=== PATIENT | female | born 1985 | race Caucasian/White ===

== ENCOUNTER 2022-06-10 17:14 | Observation (INO) ==
[2022-06-10 18:33] LABS: Basophils % 0.3 % (0.0-0.8); Eosinophils # 0.6 10*3/uL (0.0-0.87); Eosinophils % 4.8 % (0.00-10.9); Hematocrit 41.9 VOL% (35.7-47.0); Immature Granulocytes % 0.3 %; Immature Granulocytes Absolute 0.04 #; Lymphocytes # 3.7 10*3/uL (1.4-4.0); Lymphocytes % 28.2 % (21.3-54.2); Mean Corpuscular HGB Conc 33.4 GM/DL (32-36); Mean Corpuscular Volume 85.7 FL (87-102); Mean Platelet Volume 11.2 FL (9.6-12.0); Monocytes # 0.7 10*3/uL (0.11-0.8); Monocytes % 5.7 % (1.7-12.7); Neutrophils % 60.7 % (38.7-73.9); Platelet Count 268 T/CUMM (130-400); Red Blood Count 4.89 MC/CUMM (3.8-5.5); Red Cell Distribution Width 13.2 % (9.3-17.3)
[2022-06-10 18:53] LABS: Albumin 3.4 G/DL (3.4-5.0); Bilirubin,Total 0.4 MG/DL (0.20-1.00); Calcium 9.1 MG/DL (8.5-10.1); Osmolality,Calculated 272.7 MOS/KG (273-304); Potassium 3.9 MMOL/L (3.5-5.1); Total Protein 6.8 G/DL (6.4-8.2)
[2022-06-10] MEDS ORDERED: HYDROmorphone 1 MG/1 ML SYRINGE IV STA (19:06)
[2022-06-10] MEDS ORDERED: ONDANSETRON 4 MG/2 ML VIAL IV STA (19:06)
[2022-06-10] MEDS ORDERED: ONDANSETRON 4 MG/2 ML VIAL IV PRN (19:50)
[2022-06-10] MEDS: LACTATED RINGERS 1,000 ML IV SCH (20:52)
[2022-06-11] MEDS: LACTATED RINGERS 1,000 ML IV SCH ×3 (04:50→16:05)
[2022-06-11] MEDS: HYDROmorphone 1 MG/1 ML SYRINGE IV PRN ×7 (07:39→16:29)
[2022-06-11] MEDS ORDERED: NICOTINE 21 MG/24 HR PATCH TRANSDERM PRN (07:46)
[2022-06-11] MEDS: PANTOPRAZOLE 40 MG TABLET PO SCH (08:34)
[2022-06-11] MEDS ORDERED: INDOCYANINE GREEN 25 MG VIAL IV ONE (09:05)
[2022-06-11] MEDS ORDERED: fentaNYL 100 MCG/2 ML VIAL ONE (12:46)
[2022-06-11] MEDS ORDERED: MIDAZOLAM 2 MG/2 ML VIAL ONE (12:46)
[2022-06-11] MEDS ORDERED: LACTATED RINGERS 1,000 ML IV SCH (13:00)
[2022-06-11] MEDS ORDERED: BUPIVACAINE MPF 0.25% 10 ML VIAL ONE (13:18)
[2022-06-11] MEDS ORDERED: ePHEDrine 50 MG/ML VIAL ONE (13:48)
[2022-06-11] MEDS ORDERED: LIDOCAINE 2% 5 ML VIAL ONE (13:58)
[2022-06-11] MEDS ORDERED: SUCCINYLCHOLINE 200 MG/10 ML VIAL ONE (13:58)
[2022-06-11] MEDS ORDERED: propofoL 200 MG/20 ML VIAL IV ONE (13:58)
[2022-06-11] MEDS ORDERED: SEVOFLURANE 1 UNIT/15 MINUTE INH ONE ×2 (13:58→14:23)
[2022-06-11] MEDS ORDERED: PHENYLEPHRINE 1 MG/10 ML SYRINGE IV ONE (13:58)
[2022-06-11] MEDS ORDERED: ROCURONIUM 50 MG/5 ML VIAL IV ONE (13:58)
[2022-06-11] MEDS ORDERED: ONDANSETRON 4 MG/2 ML VIAL ONE (13:59)
[2022-06-11] MEDS ORDERED: GLYCOPYRROLATE 0.4 MG/2 ML VIAL ONE (14:19)
[2022-06-11] MEDS ORDERED: NEOSTIGMINE 10 MG/10 ML VIAL ONE (14:22)
[2022-06-11] MEDS ORDERED: KETOROLAC 30 MG/1 ML VIAL ONE (14:24)
[2022-06-11] MEDS ORDERED: ONDANSETRON 4 MG/2 ML VIAL IV PRN ×2 (14:55→15:19)
[2022-06-11] MEDS ORDERED: MEPERIDINE 25 MG/1 ML VIAL ONE (15:09)
[2022-06-11] MEDS ORDERED: HYDROmorphone 1 MG/1 ML SYRINGE IV PRN (15:19)
[2022-06-11] MEDS ORDERED: KETOROLAC 15 MG/1 ML VIAL IV PRN (15:19)
[2022-06-11] MEDS ORDERED: MEPERIDINE 50 MG/1 ML VIAL IV PRN (15:25)
[2022-06-12 05:05] LABS: Basophils % 0.3 % (0.0-0.8); Eosinophils # 0.4 10*3/uL (0.0-0.87); Eosinophils % 3.9 % (0.00-10.9); Hematocrit 36.4 VOL% (35.7-47.0); Hemoglobin 11.7 GM/DL (12.0-16.0); Immature Granulocytes % 0.4 %; Immature Granulocytes Absolute 0.04 #; Lymphocytes # 2.3 10*3/uL (1.4-4.0); Lymphocytes % 24.3 % (21.3-54.2); Mean Corpuscular HGB Conc 32.1 GM/DL (32-36); Mean Corpuscular Volume 89.4 FL (87-102); Mean Platelet Volume 11.2 FL (9.6-12.0); Monocytes # 0.5 10*3/uL (0.11-0.8); Monocytes % 5.1 % (1.7-12.7); Platelet Count 229 T/CUMM (130-400); Red Blood Count 4.07 MC/CUMM (3.8-5.5); Red Cell Distribution Width 13.4 % (9.3-17.3); White Blood Count 9.5 T/CUMM (4-12)
[2022-06-12] MEDS: LACTATED RINGERS 1,000 ML IV SCH ×3 (07:07→11:44)
[2022-06-12] MEDS ORDERED: VENLAFAXINE 25 MG PO SCH (09:00)
[2022-06-12] MEDS: PANTOPRAZOLE 40 MG TABLET PO SCH (09:36)
[2022-06-12] MEDS: HYDROmorphone 1 MG/1 ML SYRINGE IV PRN (11:43)
[2022-06-12 12:14] VITALS: BP 132/80
== END 2022-06-12 12:56 | disposition home or self-care (01) ==
LOC: EDUNIT# → EDBD → N.ED 17:14 → N.EDINP 17:14 → N.2W 21:46
PROVIDERS: ADMIT Surgery; ATTEND Surgery